=== PATIENT | male | born 1990 | race Caucasian/White ===

== ENCOUNTER → 2022-08-08 | Outpatient (CLI) | payer OTHER ==
[~2022-08-08] MED LIST: BACTRIM DS 8001 TA1 PO; CEPHALEXIN500 M1 PO; GOOD NEIGHBOR L10 MG PO; HYDROCODONE BIT1 T11 PO
== END | disposition home or self-care (01) ==
LOC: RAD 15:57
PROVIDERS: ATTEND Chiropractor
DX: M54.2 Cervicalgia (principal)